=== PATIENT | female | born 1955 | race Caucasian/White ===

== ENCOUNTER 2020-10-07 07:24 | Observation (INO) ==
[2020-10-07 08:30] LABS: ABS Eosinophils 0.2 10^3/ul (0-0.6); ABS Lymphocytes 1.5 10^3/ul (1.0-4.8); ABS Monocytes 0.6 10^3/ul (0-0.8); ABS Neutrophils 6.9 10^3/ul (1.5-7.7); Hematocrit 27 % (35-47); Hemoglobin 8.8 g/dL (12.0-16.0); Mean Corpuscular HGB Conc 32 g/dL (31-36); Mean Corpuscular Hemoglobin 27 pg (27-31); Mean Corpuscular Volume 84 fL (80-97); Mean Platelet Volume 8.1 fL (7.4-10.4); Platelet Count 263 10^3/uL (150-450); Red Blood Count 3.22 10^6 /uL (3.70-4.87); Red Cell Distribution Width 15 % (10-15); White Blood Count 9.3 10^3/uL (3.5-10.8)
[2020-10-07 08:38] LABS: INR 1.19 (0.82-1.09)
[2020-10-07 08:43] LABS: Albumin 3.9 g/dL (3.2-5.2); Albumin/Globulin Ratio 1.3 (1-3); Calcium 9.3 mg/dL (8.6-10.3); EGFR African American 58.9 (>60); EGFR Non-African American 48.7 (>60); Globulin 3.1 g/dL (2-4); Potassium 4.8 mmol/L (3.5-5.0); Total Bilirubin 0.5 mg/dL (0.2-1.0)
[2020-10-07] MEDS ORDERED: Ondansetron 4 mg VIAL 2 MG/ML 2 ml VIAL IV PRN (09:55)
[2020-10-07] MEDS ORDERED: Dextrose 50% Syringe 50 ml 25 GM/50 ML SYRINGE IV PUSH PRN (10:06)
[2020-10-07] MEDS ORDERED: Furosemide 40 mg/4 ml IV VIAL IV ONE (10:13)
[2020-10-07 11:24] LABS: Total Iron Binding Capacity 501 mcg/dL (250-450); Transferrin 358 mg/dL (203-362)
[2020-10-07 11:26] LABS: % Iron Saturation 4 % (15-55); Iron < 20 ug/dL (50-212); Unsaturated Iron Binding < 486 ug/dL
[2020-10-07 11:46] LABS: Ferritin 32.2 ng/mL (11-307)
[2020-10-07 11:50] LABS: Folate 19.51 ng/mL (>3.99); Vitamin B12 705 pg/mL (180-914)
[2020-10-07] MEDS: Enoxaparin 40 MG/0.4 ML SYR SUBCUT SCH (11:54)
[2020-10-07] MEDS: Insulin GLARGINE 100 un/ml 10 ml VIAL SUBCUT SCH (11:59)
[2020-10-07 14:02] LABS: Corrected Retic Count 1.2 % (0.5-1.5); Hematocrit for Retic CNT 28 % (35-47); Immature Retic Fraction 0.44; RBC Retic Count 3.27 10^6/uL (3.70-4.87)
[2020-10-08 07:07] LABS: ABS Basophils 0.1 10^3/ul (0-0.2); ABS Eosinophils 0.2 10^3/ul (0-0.6); ABS Lymphocytes 2.5 10^3/ul (1.0-4.8); ABS Monocytes 0.9 10^3/ul (0-0.8); ABS Neutrophils 6.9 10^3/ul (1.5-7.7); Eosinophil % 1.6 %; Hematocrit 30 % (35-47); Hemoglobin 9.7 g/dL (12.0-16.0); Lymphocyte % 23.5 %; Mean Corpuscular HGB Conc 33 g/dL (31-36); Mean Corpuscular Hemoglobin 28 pg (27-31); Mean Corpuscular Volume 84 fL (80-97); Mean Platelet Volume 8.1 fL (7.4-10.4); Platelet Count 306 10^3/uL (150-450); Red Blood Count 3.54 10^6 /uL (3.70-4.87); Red Cell Distribution Width 15 % (10-15); White Blood Count 10.5 10^3/uL (3.5-10.8)
[2020-10-08 07:35] LABS: BUN/Creatinine Ratio 29.9 (8-20); Calcium 9.6 mg/dL (8.6-10.3); EGFR Non-African American 46.3 (>60); HDL Cholesterol 49.3 mg/dL; Potassium 4.6 mmol/L (3.5-5.0)
[2020-10-08] MEDS: Enoxaparin 40 MG/0.4 ML SYR SUBCUT SCH (08:49)
[2020-10-08] MEDS: Insulin GLARGINE 100 un/ml 10 ml VIAL SUBCUT SCH (08:53)
[2020-10-08] MEDS ORDERED: Regadenoson 0.4 MG/5 ML SYRINGE ONE (14:26)
[2020-10-08 16:38] VITALS: BP 140/46
== END 2020-10-08 19:30 | disposition home or self-care (01) ==
LOC: ED 07:24 → MEDTELE 07:24
PROVIDERS: ADMIT Hospitalist; ATTEND Hospitalist

== ENCOUNTER 2021-01-14 05:50 | Inpatient (IN) ==
[2021-01-14] MEDS ORDERED: Buffered Lidocaine 1% SYRIN 1 ml INTRADERM ONE ×2 (06:00→06:10)
[2021-01-14] MEDS ORDERED: ceFAZolin 2 GM PREMIX 2 GM/50 ML BAG ONE (06:10)
[2021-01-14] MEDS: Lactated Ringers 1000 ml BAG 1,000 ML IV SCH ×2 (06:37→14:14)
[2021-01-14] MEDS ORDERED: Tranexamic Acid 1,000 MG/10 ML SDV ONE ×2 (07:22→08:08)
[2021-01-14] MEDS ORDERED: Midazolam 2 mg/2 ml VIAL 1 mg/ml 2 ml VIAL (2 mg) ONE (07:22)
[2021-01-14] MEDS ORDERED: Ketamine HCL 50 mg/ml 10 ml VIAL (500 MG) ONE (07:22)
[2021-01-14] MEDS ORDERED: Morphine PF AMP (0.5MG/ML) 5 MG/10 ML AMP ONE (07:23)
[2021-01-14] MEDS ORDERED: Bacitracin INJECTION (manuf dc) 50,000 UNITS ONE (07:23)
[2021-01-14] MEDS ORDERED: Bupivacaine 0.25% EPI 200,000 30 ML SDV ONE (07:23)
[2021-01-14 07:29] LABS: INR 1.11 (0.86-1.15)
[2021-01-14 07:34] LABS: Calcium 9.7 mg/dL (8.6-10.3); EGFR African American 52.4 (>60); EGFR Non-African American 43.3 (>60); Potassium 4.8 mmol/L (3.5-5.0)
[2021-01-14] MEDS ORDERED: fentaNYL 100 mcg/2 ml 50 MCG/ML VIAL ONE ×2 (09:42→11:19)
[2021-01-14] MEDS ORDERED: Propofol 10 MG/ML 20 ML BTL ONE (09:47)
[2021-01-14] MEDS ORDERED: ROPIVACAINE 5 MG/ML 30 ML BTL (0.5%) ONE (09:47)
[2021-01-14] MEDS ORDERED: Dexamethasone IV 4 MG/ML VIAL 1 ml VIAL ONE (09:47)
[2021-01-14] MEDS ORDERED: Ondansetron 4 mg VIAL 2 MG/ML 2 ml VIAL IV PRN ×2 (11:02→11:18)
[2021-01-14] MEDS ORDERED: Naloxone 0.4 mg VIAL 0.4 mg/ml 1 ml VIAL IV PRN (11:02)
[2021-01-14] MEDS ORDERED: Lactulose 30 ml UDC PO PRN (11:18)
[2021-01-14] MEDS ORDERED: diPHENhydraMINE IV 50 MG/ML 1 ml VIAL (BENADRYL) IV PRN (11:18)
[2021-01-14] MEDS ORDERED: Ondansetron ODT 4 mg TAB 4 MG TAB PO PRN (11:18)
[2021-01-14] MEDS ORDERED: Magnesium Hydroxide LIQ 30 ML UDC PO PRN (11:18)
[2021-01-14] MEDS ORDERED: Morphine 2 MG/ML SYRINGE IV PRN (11:18)
[2021-01-14] MEDS ORDERED: HYDROmorphone 1 MG/1 ML SYRINGE ONE (11:20)
[2021-01-14] MEDS: HYDROmorphone 1 MG/1 ML SYRINGE IV PRN ×2 (11:21→11:40)
[2021-01-14] MEDS ORDERED: Ondansetron 4 mg VIAL 2 MG/ML 2 ml VIAL ONE (11:58)
[2021-01-14] MEDS ORDERED: Lactated Ringers 1000 ml BAG 1,000 ML IV SCH (12:00)
[2021-01-14] MEDS ORDERED: Dulaglutide (NF) 1.5 MG/0.5 ML SYRINGE SUBCUT SCH (12:00)
[2021-01-14] MEDS ORDERED: Dextrose 50% Syringe 50 ml 25 GM/50 ML SYRINGE IV PUSH PRN (12:31)
[2021-01-14] MEDS: diPHENhydraMINE 25 mg TAB PO PRN (14:05)
[2021-01-14] MEDS: Clindamycin 600 MG/D5W BAG 600 MG/50 ML BAG IV SCH ×2 (16:02→23:49)
[2021-01-14] MEDS: Magnesium Hydroxide LIQ 30 ML UDC PO SCH (22:19)
[2021-01-15 06:07] LABS: Hematocrit 24 % (35-47); Hemoglobin 7.9 g/dL (12.0-16.0); Mean Platelet Volume 8.2 fL (7.4-10.4); Platelet Count 227 10^3/uL (150-450)
[2021-01-15 06:24] LABS: Calcium 9.2 mg/dL (8.6-10.3); Potassium 4.6 mmol/L (3.5-5.0)
[2021-01-15 06:29] LABS: EGFR Non-African American 60.3 (>60)
[2021-01-15] MEDS: diPHENhydraMINE 25 mg TAB PO PRN (07:35)
[2021-01-15] MEDS: Clindamycin 600 MG/D5W BAG 600 MG/50 ML BAG IV SCH (07:38)
[2021-01-15] MEDS: Magnesium Hydroxide LIQ 30 ML UDC PO SCH (08:38)
[2021-01-15] MEDS ORDERED: CMCS: Fenofibrate 145 mg TAB (NF) PO SCH (09:00)
[2021-01-15] MEDS ORDERED: Vitamin THERAPEUTIC TAB PO SCH (09:00)
[2021-01-15] MEDS ORDERED: Insulin GLARGINE 100 un/ml 10 ml VIAL SUBCUT SCH (09:00)
[2021-01-15 11:43] VITALS: BP 129/50
[2021-01-15 12:03] LABS: Hematocrit 23 % (35-47); Hemoglobin 7.5 g/dL (12.0-16.0)
== END 2021-01-15 14:05 | disposition home or self-care (01) | DRG 470 ==
LOC: AA 05:50 → SSU 13:18
PROVIDERS: ADMIT Orthopaedic Surgery Sports Medicine; ATTEND Orthopaedic Surgery Sports Medicine

== ENCOUNTER 2021-09-04 16:57 | Observation (INO) ==
[2021-09-04 18:12] LABS: ABS Eosinophils 0.3 10^3/ul (0-0.6); ABS Lymphocytes 2.3 10^3/ul (1.0-4.8); ABS Monocytes 0.5 10^3/ul (0-0.8); ABS Neutrophils 5.6 10^3/ul (1.5-7.7); Eosinophil % 3.5 %; Hematocrit 29 % (35-47); Hemoglobin 9.3 g/dL (12.0-16.0); Lymphocyte % 26.4 %; Mean Corpuscular HGB Conc 33 g/dL (31-36); Mean Corpuscular Hemoglobin 26 pg (27-31); Mean Corpuscular Volume 79 fL (80-97); Mean Platelet Volume 8.2 fL (7.4-10.4); Platelet Count 246 10^3/uL (150-450); Red Blood Count 3.61 10^6 /uL (3.70-4.87); Red Cell Distribution Width 16 % (10-15); White Blood Count 8.9 10^3/uL (3.5-10.8)
[2021-09-04 18:18] LABS: INR 1.13 (0.86-1.15)
[2021-09-04 18:42] LABS: Albumin 4.4 g/dL (3.2-5.2); Albumin/Globulin Ratio 1.6 (1-3); Calcium 9.7 mg/dL (8.6-10.3); Globulin 2.8 g/dL (2-4); Total Bilirubin 0.4 mg/dL (0.2-1.0); Total Protein 7.2 g/dL (6.4-8.9); eGFR CKD-EPI 50.6 (>60)
[2021-09-04 18:47] LABS: Potassium 5.1 mmol/L (3.5-5.0)
[2021-09-04] MEDS ORDERED: Dextrose 50% Syringe 50 ml 25 GM/50 ML SYRINGE IV PUSH PRN (20:20)
[2021-09-04] MEDS ORDERED: Patiromer POWDER 8.4 GM PAK PO ONE (20:39)
[2021-09-04] MEDS: Heparin 5000 UNITS/ML 1 mL VIAL SUBCUT SCH (21:44)
[2021-09-05 00:15] LABS: Urine Creatinine Concentration 29.56 mg/dL
[2021-09-05 05:31] LABS: ABS Eosinophils 0.3 10^3/ul (0-0.6); ABS Lymphocytes 2.4 10^3/ul (1.0-4.8); ABS Monocytes 0.5 10^3/ul (0-0.8); Eosinophil % 4.4 %; Hematocrit 28 % (35-47); Hemoglobin 8.7 g/dL (12.0-16.0); Lymphocyte % 32.9 %; Mean Corpuscular HGB Conc 32 g/dL (31-36); Mean Corpuscular Hemoglobin 25 pg (27-31); Mean Corpuscular Volume 80 fL (80-97); Mean Platelet Volume 7.8 fL (7.4-10.4); Platelet Count 217 10^3/uL (150-450); Red Blood Count 3.45 10^6 /uL (3.70-4.87); Red Cell Distribution Width 17 % (10-15); White Blood Count 7.2 10^3/uL (3.5-10.8)
[2021-09-05 05:39] LABS: INR 1.17 (0.86-1.15)
[2021-09-05 05:55] LABS: Albumin/Globulin Ratio 1.4 (1-3); Calcium 9.5 mg/dL (8.6-10.3); Direct Bilirubin 0.1 mg/dL (0.03-0.18); Globulin 2.8 g/dL (2-4); Indirect Bilirubin 0.3 mg/dL (0.3-1.0); Total Bilirubin 0.4 mg/dL (0.2-1.0); Total Protein 6.8 g/dL (6.4-8.9); eGFR CKD-EPI 43.9 (>60)
[2021-09-05 06:01] LABS: Potassium 5.1 mmol/L (3.5-5.0)
[2021-09-05] MEDS: Heparin 5000 UNITS/ML 1 mL VIAL SUBCUT SCH (06:17)
[2021-09-05] MEDS ORDERED: Enoxaparin 40 MG/0.4 ML SYR SUBCUT SCH (08:00)
[2021-09-05] MEDS ORDERED: Aspirin EC 81 mg TAB.EC (enteric coated) PO SCH (09:00)
[2021-09-05] MEDS ORDERED: Insulin GLARGINE 100 un/ml 10 ml VIAL SUBCUT SCH (09:00)
[2021-09-05] MEDS ORDERED: Iron Sucrose 200 MG in NS 0.9% 100 ml BAG 100 ML IVPB SCH (09:00)
[2021-09-05] MEDS ORDERED: Regadenoson 0.4 MG/5 ML SYRINGE ONE (14:32)
[2021-09-05] MEDS ORDERED: Furosemide 20 mg/2 ml IV VIAL IV SLOW PU ONE (15:01)
[2021-09-05 15:44] VITALS: BP 140/54
== END 2021-09-05 16:10 | disposition home or self-care (01) ==
LOC: EDHOLD 16:57 → ED 16:57 → SUATTDRO 20:13 → MEDTELE 22:59
PROVIDERS: ADMIT Hospitalist; ATTEND Internal Medicine

== ENCOUNTER 2023-11-16 05:36 | Observation (INO) ==
[~2023-11-16 05:36] MED LIST: Naloxone 0.4 mg VIAL 0.4 mg/ml 1 ml VIAL IV PRN; Ondansetron 4 mg VIAL 2 MG/ML 2 ml VIAL IV PRN; fentaNYL 100 mcg/2 ml 50 MCG/ML VIAL IV PRN
[2023-11-16] MEDS ORDERED: Tranexamic Acid 1 GM/100ML BAG 2,000 MG/200 ML BAG IV ONE (06:01)
[2023-11-16] MEDS ORDERED: ceFAZolin 2 GM in NS PREMIX 2 GM/100 ML BAG IVPB ONE (06:01)
[2023-11-16 06:16] LABS: Rapid COVID-19 Molecular Undetected (Undetected)
[2023-11-16] MEDS ORDERED: Propofol 0 MG/0 ML BTL ONE (06:30)
[2023-11-16] MEDS ORDERED: Midazolam 2 mg/2 ml VIAL 1 mg/ml 2 ml VIAL (2 mg) ONE (06:41)
[2023-11-16] MEDS ORDERED: fentaNYL 250 mcg/5 ml 50 MCG/ML 5 ml VIAL (250 MCG) ONE ×2 (06:41→08:30)
[2023-11-16] MEDS ORDERED: Propofol 10 MG/ML 20 ML BTL ONE (07:14)
[2023-11-16] MEDS ORDERED: Lidocaine 2% PF 5 ML VIAL ONE (07:14)
[2023-11-16] MEDS ORDERED: Rocuronium 50 mg VIAL 10 mg/ml 5 ml VIAL (50 mg) ONE ×2 (07:15→08:15)
[2023-11-16] MEDS ORDERED: Bupivacaine 0.25% SDV 30 ML ONE (07:53)
[2023-11-16] MEDS ORDERED: Phenylephrine 40 mcg/mL 10mL (400mcg) SYRINGE ONE (08:04)
[2023-11-16] MEDS ORDERED: Dexamethasone IV 4 MG/ML VIAL 1 ml VIAL ONE (08:05)
[2023-11-16] MEDS ORDERED: Ondansetron 4 mg VIAL 2 MG/ML 2 ml VIAL ONE ×2 (08:05→08:15)
[2023-11-16] MEDS ORDERED: Acetaminophen IV 1 GM/100ML 0 MG/0 ML BAG IV ONE (08:23)
[2023-11-16] MEDS: BUPIVACAINE **LIPOSOME/PF 13.3 MG/ML (266MG/ 20ML) VIAL (RESTRICTED) INFIL ONE (10:35)
[2023-11-16] MEDS ORDERED: Ondansetron 4 mg VIAL 2 MG/ML 2 ml VIAL IV PRN (10:51)
[2023-11-16] MEDS ORDERED: Morphine 2 MG/ML SYRINGE IV PRN (10:51)
[2023-11-16] MEDS ORDERED: Ondansetron ODT 4 mg TAB 4 MG TAB PO PRN (10:51)
[2023-11-16] MEDS ORDERED: Magnesium Hydroxide LIQ 30 ML UDC PO PRN (10:51)
[2023-11-16] MEDS ORDERED: Lactulose 30 ml UDC PO PRN (10:51)
[2023-11-16] MEDS: Lactated Ringers 1000 ml BAG 1,000 ML IV SCH ×2 (12:49→12:59)
[2023-11-16] MEDS ORDERED: Dextrose 50% Syringe 50 ml 25 GM/50 ML SYRINGE IV PUSH PRN (14:14)
[2023-11-16] MEDS: ceFAZolin 1 GM ADVAN 1 GM in NS 0.9% 50 ML 50 ML IVPB SCH (15:27)
[2023-11-16] MEDS: Buffered Lidocaine 1% SYRIN 1 ml INTRADERM ONE (16:30)
[2023-11-16] MEDS: Magnesium Hydroxide LIQ 30 ML UDC PO SCH (20:11)
[2023-11-17 06:44] LABS: Hemoglobin 8.5 g/dL (11.5-14.3); Mean Platelet Volume 8.6 fL (7.5-11.2); Platelet Count 209 10^3/uL (150-450)
[2023-11-17 07:17] LABS: Calcium 7.8 mg/dL (8.6-10.3); Creatinine, Serum 1.45 mg/dL (0.51-0.95); Potassium 4.7 mmol/L (3.5-5.0)
[2023-11-17] MEDS: Vitamin THERAPEUTIC TAB PO SCH (08:06)
[2023-11-17] MEDS: Venlafaxine XR 75 mg PO SCH (08:06)
[2023-11-17 10:23] LABS: Albumin 3.7 g/dL (3.2-5.2); Albumin/Globulin Ratio 1.5 (1-3); Direct Bilirubin 0.1 mg/dL (0.03-0.18); Globulin 2.5 g/dL (2-4); Indirect Bilirubin 0.3 mg/dL (0.3-1.0); Total Bilirubin 0.4 mg/dL (0.2-1.0); Total Protein 6.2 g/dL (6.4-8.9)
[2023-11-17 12:20] LABS: Urine Creatinine Concentration 34.06 mg/dL (20.00-320.00)
[2023-11-17] MEDS: CALCIUM GLUCONATE 1GM/50ML NS 1 GM/50 ML BAG IV ONE (14:46)
[2023-11-17] MEDS: NS 0.9% 1000 ml BAG 1,000 ML IV SCH (15:33)
[2023-11-17 16:32] LABS: Hematocrit 26.4 % (35-45); Hemoglobin 8.8 g/dL (11.5-14.3)
[2023-11-18 06:42] LABS: Hemoglobin 9.3 g/dL (11.5-14.3); Mean Platelet Volume 8.4 fL (7.5-11.2); Platelet Count 239 10^3/uL (150-450)
[2023-11-18 06:57] LABS: Albumin 4.1 g/dL (3.2-5.2); Albumin/Globulin Ratio 1.5 (1-3); Calcium 8.7 mg/dL (8.6-10.3); Creatinine, Serum 1.07 mg/dL (0.51-0.95); Globulin 2.7 g/dL (2-4); Magnesium 2.7 mg/dL (1.9-2.7); Potassium 4.5 mmol/L (3.5-5.0); Total Bilirubin 0.7 mg/dL (0.2-1.0); Total Protein 6.8 g/dL (6.4-8.9); eGFR CKD-EPI 56.2 (>60)
[2023-11-18 10:14] VITALS: BP 125/50
== END 2023-11-18 11:39 | disposition home or self-care (01) ==
LOC: OR 05:36 → SSU 05:36
PROVIDERS: ADMIT Orthopaedic Surgery Sports Medicine; ATTEND Orthopaedic Surgery Sports Medicine

== ENCOUNTER 2024-05-29 17:00 | Observation (INO) ==
[2024-05-29] MEDS: NS 0.9% 1000 ml BAG 1,000 ML IV ONE (18:15)
[2024-05-29 18:34] LABS: ABS Basophils 0.1 10^3/uL (0.0-0.1); ABS Eosinophils 0.2 10^3/uL (0.0-0.5); ABS Lymphocytes 2.5 10^3/uL (1.0-4.8); ABS Monocytes 0.6 10^3/uL (0.0-0.9); ABS Neutrophils 5.8 10^3/uL (1.5-7.6); ABS Nucleated RBC 0.01 10^3/ul; Eosinophil % 1.7 %; Hematocrit 34.9 % (35-45); Hemoglobin 11.4 g/dL (11.5-14.3); Lymphocyte % 27.5 %; Mean Corpuscular Hemoglobin 27.7 pg (27-33); Mean Corpuscular Hgb Conc 32.7 g/dL (31-36); Mean Corpuscular Volume 84.8 fL (80-97); Nucleated Red Blood Cells % 0.1 %/100WBC (0.0-0.8); Platelet Count 267 10^3/uL (150-450); Red Blood Count 4.11 10^6/uL (3.63-4.92); Red Cell Distribution Width 15.3 % (12-17); White Blood Count 9.1 10^3/uL (3.8-11.8)
[2024-05-29 19:01] LABS: Albumin/Globulin Ratio 1.8 (1-3); Calcium 8.7 mg/dL (8.6-10.3); Creatinine, Serum 0.87 mg/dL (0.51-0.95); Globulin 2.2 g/dL (2-4); Magnesium 1.7 mg/dL (1.9-2.7); Potassium 3.8 mmol/L (3.5-5.0); Total Bilirubin 0.4 mg/dL (0.2-1.0); Total Protein 6.2 g/dL (6.4-8.9); eGFR CKD-EPI 72.1 (>60)
[2024-05-29 19:13] LABS: TSH Ultra Thyroid Stim Horm 0.68 mcIU/mL (0.34-5.60)
[2024-05-29 20:00] LABS: High Sensitivity Troponin 1 Hr 4 pg/mL (<15)
[2024-05-29] MEDS: Iodixanol 320 (CONTRAST) 100 ML SDV IV ONE (20:22)
[2024-05-29 20:38] LABS: Urine Appearance Extra Turbid; Urine Bilirubin Negative (Negative); Urine Blood Trace (Negative); Urine Color Yellow; Urine Glucose 1+ (>=70 mg/dL) (Negative); Urine Ketones Negative (Negative); Urine Nitrite Negative (Negative); Urine Protein 1+ (>=30 mg/dL) (Negative); Urine Specific Gravity 1.032 (1.002-1.030); Urine Urobilinogen Negative (Negative)
[2024-05-29 20:44] LABS: Budding Yeast Present /HPF (Absent); Urine Bacteria 1+ /HPF (Absent); Urine Red Blood Cell 3+(>10/hpf) /HPF (0-Trace); Urine Squamous Epithelial Cell Present /HPF (Absent); Urine White Blood Cell 3+(>20/hpf) /HPF (0-Trace)
[2024-05-29] MEDS: cefTRIAXone 1 gm/50 mL D5W 1 GM/50 ML BAG IV ONE (21:26)
[2024-05-30] MEDS ORDERED: Sulfur Hexaflouride MICROSPHR 25 MG VIAL IV PRN (00:04)
[2024-05-30] MEDS ORDERED: Dextrose 50% Syringe 50 ml 25 GM/50 ML SYRINGE IV PUSH PRN (00:05)
[2024-05-30] MEDS: Enoxaparin 40 MG/0.4 ML SYR SUBCUT SCH (04:39)
[2024-05-30] MEDS: Magnesium Sulfate 2 gm BAG 2 GM/50 ML BAG IVPB ONE (04:40)
[2024-05-30 05:14] LABS: Calcium 9.5 mg/dL (8.6-10.3); Creatinine, Serum 0.92 mg/dL (0.51-0.95); Potassium 4.1 mmol/L (3.5-5.0); eGFR CKD-EPI 67.4 (>60)
[2024-05-30 05:34] LABS: ABS Eosinophils 0.2 10^3/uL (0.0-0.5); ABS Lymphocytes 2.7 10^3/uL (1.0-4.8); ABS Monocytes 0.4 10^3/uL (0.0-0.9); ABS Neutrophils 4.6 10^3/uL (1.5-7.6); Eosinophil % 2.1 %; Hematocrit 32.9 % (35-45); Hemoglobin 10.8 g/dL (11.5-14.3); Lymphocyte % 34.3 %; Mean Corpuscular Hemoglobin 27.7 pg (27-33); Mean Corpuscular Hgb Conc 32.7 g/dL (31-36); Mean Corpuscular Volume 84.7 fL (80-97); Mean Platelet Volume 8.1 fL (7.5-11.2); Platelet Count 254 10^3/uL (150-450); Red Blood Count 3.89 10^6/uL (3.63-4.92); Red Cell Distribution Width 15.1 % (12-17); White Blood Count 7.9 10^3/uL (3.8-11.8)
[2024-05-30] MEDS: Insulin GLARGINE 100 un/ml 10 ml VIAL SUBCUT SCH (09:00)
[2024-05-30] MEDS: Venlafaxine XR 75 mg PO SCH (09:02)
[2024-05-30] MEDS ORDERED: cefTRIAXone 1 gm/50 mL D5W 1 GM/50 ML BAG IV SCH (21:00)
[2024-05-30] MEDS: cefTRIAXone 1 gm/50 mL D5W 1 GM/50 ML BAG IV SCH (23:01)
[2024-05-31 05:59] LABS: ABS Eosinophils 0.2 10^3/uL (0.0-0.5); ABS Lymphocytes 2.7 10^3/uL (1.0-4.8); ABS Monocytes 0.5 10^3/uL (0.0-0.9); ABS Neutrophils 4.7 10^3/uL (1.5-7.6); Eosinophil % 1.9 %; Hematocrit 35.1 % (35-45); Hemoglobin 11.6 g/dL (11.5-14.3); Lymphocyte % 33.1 %; Mean Corpuscular Hemoglobin 27.9 pg (27-33); Mean Corpuscular Hgb Conc 33.1 g/dL (31-36); Mean Corpuscular Volume 84.2 fL (80-97); Platelet Count 265 10^3/uL (150-450); Red Blood Count 4.16 10^6/uL (3.63-4.92); Red Cell Distribution Width 14.7 % (12-17); White Blood Count 8.1 10^3/uL (3.8-11.8)
[2024-05-31 06:20] LABS: Creatinine, Serum 1.03 mg/dL (0.51-0.95); HDL Cholesterol 38.2 mg/dL; Magnesium 2.1 mg/dL (1.9-2.7); Potassium 4.3 mmol/L (3.5-5.0); eGFR CKD-EPI 58.9 (>60)
[2024-05-31 06:34] LABS: TSH Ultra Thyroid Stim Horm 1.11 mcIU/mL (0.34-5.60)
[2024-05-31 06:39] LABS: Ferritin 37.9 ng/mL (11-307)
[2024-05-31] MEDS: Bacitracin OINTMENT TUBE TOPICAL SCH ×2 (11:56→21:18)
[2024-06-01] MEDS: Venlafaxine XR 75 mg PO SCH (08:39)
[2024-06-02] MEDS ORDERED: Polyethylene Glycol 3350 17 GM PACKET PO PRN (07:12)
[2024-06-02] MEDS ORDERED: Senna TAB 8.6 mg TAB PO PRN (07:12)
[2024-06-02 09:21] VITALS: BP 156/57
[2024-06-02] MEDS: Magnesium Hydroxide LIQ 30 ML UDC PO SCH (10:03)
== END 2024-06-02 12:15 ==
LOC: EDHOLD 17:00 → ED 17:00 → SUATTDRO 05-30 00:03 → MED 05-30 12:18
PROVIDERS: ADMIT Internal Medicine; ATTEND Internal Medicine